=== PATIENT | male | born 1985 | race Caucasian/White ===

== ENCOUNTER 2018-03-29 13:19 | Emergency (ER) | payer OTHER ==
--- NOTE | 2018-03-29 14:31 | ED PDOC ---
HPI: Hypertension/Hypotension Time Seen by Provider: 03/29/18 13:41 Chief Complaint (Nursing): Palpitations Chief Complaint (Provider): Palptiations History Per: Patient History/Exam Limitations: no limitations Additional Complaint(s): Pt reports palpitations @ 11 AM today, lasted 1.5 hours, HR ~130, associated with numbness to both sides of face and both hands. Has h/o anxiety. 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 No complaints at present. Past Medical History Reviewed: Nursing Documentation, Vital Signs Vital Signs: Last Vital Signs Temp 98.6 F 03/29/18 13:25 Pulse 91 H 03/29/18 13:25 Resp 20 03/29/18 13:25 BP 145/100 H 03/29/18 13:25 Pulse Ox 100 03/29/18 13:25 - Medical History PMH: Anxiety - Family History Family History: States: Unknown Family Hx - Social History Current smoker - smoking cessation education provided: Yes (Vape) Alcohol: Occasional - Allergies Allergies/Adverse Reactions: Allergies Allergy/AdvReac Type Severity Reaction Status Date / Time No Known Allergies Allergy Verified 01/23/15 19:38 Review of Systems Constitutional: Negative for: Fever, Chills Eyes: Negative for: Vision Change Cardiovascular: Positive for: Palpitations. Negative for: Chest Pain Respiratory: Negative for: Cough, Shortness of Breath Gastrointestinal: Negative for: Nausea, Vomiting, Abdominal Pain, Diarrhea Musculoskeletal: Negative for: Back Pain Skin: Negative for: Rash, Lesions Neurological: Positive for: Numbness. Negative for: Weakness, Incoordination, Change in Speech, Confusion, Seizures, Altered Mental Status, Headache, Dizziness Physical Exam - Reviewed Nursing Documentation Reviewed: Yes Vital Signs Reviewed: Yes - Physical Exam Appears: Positive for: Well, No Acute Distress Head Exam: Positive for: ATRAUMATIC, NORMAL INSPECTION Skin: Positive for: Normal Color, Warm, Dry Eye Exam: Positive for: Normal appearance, EOMI, PERRL Cardiovascular/Chest: Positive for: Regular Rate, Rhythm Respiratory: Positive for: Normal Breath Sounds. Negative for: Rales, Rhonchi, Wheezing Extremity: Positive for: Normal ROM. Negative for: Swelling Neurologic/Psych: Positive for: Alert, bin cleaner II-XII, Oriented. Negative for: Aphasia, Facial Droop - Laboratory Results Result Diagrams: 03/29/18 13:44 03/29/18 13:44 - ECG Interpretation Of ECG: NSR @ 90, no ST-T changes. O2 Sat by Pulse Oximetry: 100 Pulse Ox Interpretation: Normal Medical Decision Making Medical Decision Makin yo male with palpitations, resolved. - labs - EKG - CXR Accession No. : [id number] Patient Name / ID : LIZETTE [id number] / [id number] Exam Date : 03/29/2018 14:23:24 ( Approved ) Study Comment : Sex / Age : M / 32Y Creator : Daniele Carr MD Dictator : Daniele Carr MD Chaperon : Band Leader : Daniele Carr MD Approver2 : Report Date : 03/29/2018 15:08:42 My Comment : Date of service: 03/29/2018 HISTORY: Palpitations COMPARISON: No prior. TECHNIQUE: Chest PA and lateral FINDINGS: LUNGS: No active pulmonary disease. PLEURA: No significant pleural effusion identified. No pneumothorax apparent. CARDIOVASCULAR: Normal. OSSEOUS STRUCTURES: No significant abnormalities. VISUALIZED UPPER ABDOMEN: Normal. OTHER FINDINGS: None. IMPRESSION: No active disease. Disposition - Clinical Impression Clinical Impression: Palpitations - Disposition Referrals: [facility] [Outside] [facility] [Outside] Disposition: Routine/Home Disposition Time: 16:16 Condition: GOOD Instructions: Palpitations Forms: [facility] (Guyanese)
[2018-03-29 14:56] LABS: BASO # 0.1 K/uL (0.0-0.2); BASO % 1.2 % (0.0-2.0); EOS # 0.3 K/uL (0.0-0.7); EOS % 4.3 % (0.0-4.0); HEMOGLOBIN 13.9 g/dL (12.0-18.0); LYMPH # 1.8 K/uL (1.0-4.3); LYMPH % 24.6 % (20.0-40.0); MEAN CELL VOLUME 85.3 fl (80.0-94.0); MEAN CORPUSCULAR HEMOGLOBIN 28.5 pg (27.0-31.0); MEAN CORPUSCULAR HGB CONC 33.4 g/dL (33.0-37.0); MEAN PLATELET VOLUME 8.2 fl (7.2-11.7); MONO # 0.6 K/uL (0.0-0.8); MONO % 8.6 % (0.0-10.0); NEUT # 4.6 K/uL (1.8-7.0); NEUT % 61.3 % (50.0-75.0); RBC 4.9 Mil/uL (4.40-5.90); WHITE BLOOD COUNT 7.4 K/uL (4.8-10.8)
[2018-03-29 15:06] LABS: ALB/GLOB RATIO 1.4 (1.0-2.1); ALBUMIN 5.1 g/dL (3.5-5.0); ALT/SGPT 44 U/L (21-72); AST/SGOT 38 U/L (17-59); BLOOD UREA NITROGEN 12 mg/dl (9-20); CALCIUM 9.8 mg/dL (8.4-10.2); GFR AFRICAN-AMERICAN > 60; GFR NON-AFRICAN AMERICAN > 60
--- NOTE | 2018-03-29 15:10 | RAD ---
Date of service: 03/29/2018 HISTORY: Palpitations COMPARISON: No prior. TECHNIQUE: Chest PA and lateral FINDINGS: LUNGS: No active pulmonary disease. PLEURA: No significant pleural effusion identified. No pneumothorax apparent. CARDIOVASCULAR: Normal. OSSEOUS STRUCTURES: No significant abnormalities. VISUALIZED UPPER ABDOMEN: Normal. OTHER FINDINGS: None. IMPRESSION: No active disease.
[2018-03-29 15:11] LABS: URINE BILIRUBIN NEGATIVE (NEGATIVE); URINE BLOOD NEGATIVE (NEGATIVE); URINE CLARITY CLEAR (Clear); URINE COLOR STRAW (YELLOW); URINE GLUCOSE (UA) NEG (Normal); URINE LEUKOCYTE ESTERASE NEG Leu/uL (Negative); URINE PROTEIN NEGATIVE (NEGATIVE); URINE UROBILINOGEN 0.2-1.0 mg/dL (0.2-1.0)
[2018-03-29 15:11] LABS: PROTHROMBIN TIME 10.6 Seconds (9.8-13.1)
[2018-03-29 15:14] LABS: PARTIAL THROMBOPLASTIN TIME 32.3 Seconds (25.6-37.1)
[2018-03-29 16:25] VITALS: BP 132/74; PULSE 86; RESP 21; TEMP 98.3
--- NOTE | 2018-03-30 08:09 | CARD ---
APPROVED REPORT Date of service: 03/29/2018 EKG Measurement Heart [id number] <Conclusion> Normal sinus rhythm Normal ECG
[2018-03-31 09:34] VITALS: O2SAT 100
== END 2018-03-29 16:25 | disposition home or self-care (01) ==
LOC: MERGE 13:19 → H.ER 13:19
DX: R00.2 Palpitations (principal); R20.2 Paresthesia of skin; F41.9 Anxiety disorder, unspecified; I10 Essential (primary) hypertension; F17.290 Nicotine dependence, other tobacco product, uncomplicated